=== PATIENT | female | born 1985 | race African-American/Black ===

== ENCOUNTER 2017-11-14 23:22 | Inpatient (IN) | END 2017-11-16 15:45 | disposition left against medical advice (07) | DRG 914 ==

== ENCOUNTER 2017-11-18 17:03 | Inpatient (IN) | END 2017-11-20 13:55 | disposition home or self-care (01) | DRG 902 ==

== ENCOUNTER 2018-09-17 17:26 | Emergency (ER) | payer BC ==
[~2018-09-17] VITALS: Ht 190.5 cm; Wt 145.4 kg
[~2018-09-17 17:26] MED LIST: FERR1TAB14 PO; SULF1TAB31 PO; TOPI25CA PO; TRAM50TA2 PO
[2018-09-17 17:30] VITALS: Ht 190.5 cm; Wt 145.4 kg
[2018-09-17] MEDS ORDERED: KETOROLAC 30 MG INJ IM STA (18:18)
--- NOTE | 2018-09-17 18:24 | ERD ---
ER Documentation Chief Complaint Chief Complaint possible rupture cyst suppose to have surgery soon HPI 33-year-old female presents with complaint of pelvic and suprapubic pain x2 days. Patient notes to have been diagnosed with a cyst to the pelvic region in the area of prior scar 3 years ago and has been's scheduled for surgery but keeps missing the appointments due to not being able to make time. Pt notes she is scheduled for surgery next week but d/t pain decided to present to ED today. Patient notes 2 days ago to have felt the cyst rupture, and feel a burning pain, notes 7 out of 10 pain from the area of the cyst. Patient denies fever, nausea, vomiting or diarrhea. Pt hx difficult to obtain as pt hostile throughout exam. ROS All systems reviewed and are negative except as per history of present illness. Medications Home Meds Active Scripts Gabapentin* (Gabapentin*) 300 Mg Capsule, 300 MG PO TID for neuropathy, #30 CAP Prov:DAXA GARCIA PA-C 09/17/18 Ferrous Fumarate/Ascorbic Acid (Bon-Sequels 65-25 mg Caplet) 1 Each Tablet.er, 1 TAB PO BID, #60 TAB Prov:ELÍAS RANGEL NP 11/20/17 Sulfamethoxazole/Trimethoprim* (Bactrim Ds* Tablet) 1 Each Tablet, 1 TAB PO BID for 10 Days, #20 TAB Prov:ELÍAS RANGEL NP 11/20/17 Tramadol HCl (Tramadol HCl) 50 Mg Tablet, 50 MG PO Q6H PRN for PAIN, #10 TAB Prov:ELÍAS RANGEL NP 11/20/17 Reported Medications Topiramate* (Topamax*) 25 Mg Cap.sprink, 50 MG PO DAILY, CAP 11/18/17 Allergies Allergies: Coded Allergies: Penicillins (Unverified Allergy, Unknown, 11/18/17) latex (Unverified Allergy, Unknown, 11/18/17) morphine (Unverified Allergy, Unknown, ITCH; HIVES, 11/18/17) PMhx/Soc History of Surgery: Yes Anesthesia Reaction: No Hx Neurological Disorder: No Hx Respiratory Disorders: No Hx Cardiac Disorders: Yes (HTN) Hx Psychiatric Problems: Yes (Anxiety) Hx Miscellaneous Medical Probl: No Hx Alcohol Use: No Hx Substance Use: No Hx Tobacco Use: No Physical Exam Vitals Vital Signs Date Temp Pulse Resp B/P (MAP) Pulse Ox O2 O2 Flow FiO2 Time Delivery Rate 09/17/18 75 18 154/83 100 Room Air 22:27 (106) 09/17/18 98.0 87 18 175/100 100 17:30 (125) Physical Exam GEN: Alert and coherent. Well appearing, non-toxic. No acute distress. Hostile. HEAD: Normocephalic, atraumatic. NECK: Supple. Full range of motion. Trachea midline. No lymphadenopathy. RESP: No tachypnea. Clear to auscultation bilaterally. No wheezing, rales or rhonchi. No accessory muscle use. CV: Regular rate and rhythm. No murmurs, rubs, or gallops. ABD: Soft, non-distended. No guarding. No rebound tenderness or rigidity. Positive bowel sounds in all four quadrants. Positive area of induration to the right suprapubic region, along visible scar. no warmth, no erythema, no fluctuance, TTP. BACK: Full ROM. No CVA tenderness. NEURO: Alert and oriented x3. Appropriate speech, mood and affect. Face is symmetric. Speech is normal. CN II-XII intact. Moves all extremities equally. Ambulates with a strong, steady gait. Result Diagram: 09/17/18185009/17/181850 Results 24 hrs Laboratory Tests Test 09/17/18 18:48 09/17/18 18:50 09/17/18 18:51 Urine Color YELLOW Urine Clarity SLIGHTLY CLOUDY Urine pH 6.0 Urine Specific Lueders 1.021 Urine Ketones TRACE mg/dL Urine Nitrite NEGATIVE mg/dL Urine Bilirubin NEGATIVE mg/dL Urine Urobilinogen NEGATIVE mg/dL Urine Leukocyte Esterase NEGATIVE Rafal/ul Urine Microscopic RBC 0 /HPF Urine Microscopic WBC 4 /HPF Urine Bacteria FEW /HPF Urine Hemoglobin 1+ mg/dL Urine Glucose NEGATIVE mg/dL Urine Total Protein NEGATIVE mg/dl POC Beta HCG, Qualitative NEGATIVE White Blood Count 6.7 10^3/ul Red Blood Count 5.29 10^6/ul Hemoglobin 10.0 g/dl Hematocrit 34.5 % Mean Corpuscular Volume 65.2 fl Mean Corpuscular Hemoglobin 18.9 pg Mean Corpuscular 29.0 g/dl Hemoglobin Concent Red Cell Distribution Width 19.7 % Platelet Count 311 10^3/UL Mean Platelet Volume 11.0 fl Immature Granulocytes % 0.300 % Neutrophils % 54.4 % Lymphocytes % 33.9 % Monocytes % 8.3 % Eosinophils % 2.7 % Basophils % 0.4 % Nucleated Red Blood Cells % 0.0 /100WBC Immature Granulocytes # 0.020 10^3/ul Neutrophils # 3.7 10^3/ul Lymphocytes # 2.3 10^3/ul Monocytes # 0.6 10^3/ul Eosinophils # 0.2 10^3/ul Basophils # 0.0 10^3/ul Nucleated Red Blood Cells # 0.0 10^3/ul Prothrombin Time 12.0 Sec Prothrombin Time Ratio 0.9 INR International 0.88 Normalized Ratio Activated Partial Thromboplast 25.2 Sec Time Sodium Level 141 mmol/L Potassium Level 4.2 mmol/L Chloride Level 105 mmol/L Carbon Dioxide Level 27 mmol/L Anion Gap 9 Blood Urea Nitrogen 14 mg/dl Creatinine 0.78 mg/dl Est Glomerular Filtrat > 60 mL/min Rate mL/min Glucose Level 73 mg/dl Calcium Level 8.8 mg/dl Total Bilirubin 0.1 mg/dl Direct Bilirubin 0.00 mg/dl Indirect Bilirubin 0.1 mg/dl Aspartate Amino 18 IU/L Transf (AST/SGOT) Alanine 14 IU/L Aminotransferase (ALT/SGPT) Alkaline Phosphatase 56 IU/L Total Protein 8.4 g/dl Albumin 4.3 g/dl Globulin 4.10 g/dl Albumin/Globulin Ratio 1.04 Current Medications Medications Dose Sig/Dinesh Start Time Status Last (Trade) Ordered Route PRN Stop Time Admin Dose Reason Admin Iohexol Adult GIVE PRIOR 09/17/18 Cancel ((Gastrografi Formulation TO CT ONCE 18:30 n (Ple... PO 09/17/18 18:31 therapeutic equivalent)) Ketorolac 30 mg ONCE STAT 09/17/18 DC 09/17/18 Tromethamine IM 18:18 18:59 (Toradol) 09/17/18 18:20 IV Flush 10 ml STK-MED 09/17/18 DC (NS 10 ml) ONCE .ROUTE 19:20 09/17/18 19:21 Sodium 100 ml @ ud STK-MED 09/17/18 DC Chloride ONCE .ROUTE 19:20 09/17/18 19:21 Iohexol 150 ml STK-MED 09/17/18 DC (Omnipaque ONCE .ROUTE 19:20 300mg/ ml) 09/17/18 19:21 Procedures/MDM PROCEDURE: CT Abdomen and pelvis with contrast. COMPARISON: None. FINDINGS: Evaluation of the lung bases demonstrates no pleural or parenchymal disease. Abdomen: The liver is normal in size. There is no focal mass or dilatation of the biliary tree. The gallbladder is not distended. The spleen, pancreas and bilateral adrenal glands are within normal limits. Bilateral kidneys are normal in size with symmetric enhancement. There is no focal mass, hydronephrosis or hydroureter. There is no retroperitoneal adenopathy. The abdominal aorta is of normal caliber. There is a subcutaneous density within the right lower ventral abdominal wall measuring 2.2 x 2.7 cm. There is moderate retained stool within the colon. There is no bowel obstruction or free air. A normal appendix is identified. There is no diverticulosis or diverticulitis. There is no ascites. Pelvis: The bladder is unremarkable. The uterus and adnexa are within normal limits. There is no significant pelvic adenopathy or free fluid. Evaluation of the osseous structures demonstrates no suspicious lytic or blastic lesion. IMPRESSION: No acute abnormality identified within the abdomen and pelvis. Moderate retained stool within the colon. Subcutaneous density within the right lower ventral abdominal wall could represent focal scarring. Clinical correlation and follow-up is recommended. MDM: This is a 33yo F who presents with complaint of ruptured cyst of the abdomen. On exam, no visible cyst, but area of induration felt in the right suprapubic region. CT w/IV contrast revealed no cyst or abscess, but positive scar tissue consistent with pt history. Upon re-evaluation pt in no acute distress and eating pudding and crackers in hospital bed. Pt reassured regarding results and advised to f/u with her surgeon next week as previously scheduled for surgery. Copies of CT results and labs given to pt. Pt stable for discharge with outpatient management at this time. Counseled regarding ED return pre cautions. At end of visit pt complaining of neuropathy and requesting pain medication. Pt offerred prescription of gabapentin, but upon discharge refused. Departure Diagnosis: Primary Impression: Pelvic pain Additional Impression: Scar tissue Condition: DAXA Gay PA-C September 17, 2018 18:24
[2018-09-17] MEDS ORDERED: IOHEXOL 14.3 MG(I)/ML (ADULT) BTL PO ONE (18:30)
[2018-09-17] MEDS ORDERED: SOD CHLORIDE 0.9% 100 ML ONE (19:20)
[2018-09-17] MEDS ORDERED: IOHEXOL 300MG/ML 150 ML BTL ONE (19:20)
[2018-09-17] MEDS ORDERED: GABA300C16 PO (22:24)
[2018-09-17 22:27] VITALS: BP 154/83; PULSE 75; RESP 18
== END 2018-09-17 22:27 | disposition home or self-care (01) ==
LOC: FTE 17:26
DX: L90.5 Scar conditions and fibrosis of skin (principal); I10 Essential (primary) hypertension; Z91.040 Latex allergy status
CPT/HCPCS: 36415; 74177; 80053; 81001; 81025; 85025; 85610; 85730; 96372; 99285; J1885; Q9967; Z7610

== ENCOUNTER 2018-12-14 12:39 | Emergency (ER) | payer BC ==
[~2018-12-14] VITALS: Ht 190.5 cm; Wt 136.4 kg
[~2018-12-14 12:39] MED LIST changes: +BEN25 PO; +DIVA500T15 PO; +GABA300C16 PO; +HYDR50CA2 PO; +LURA20TA PO; +PRAZ2CAP2 PO
[2018-12-14 12:43] VITALS: Ht 190.5 cm; Wt 136.4 kg
[2018-12-14] MEDS ORDERED: DIPHENHYDRAMINE 25 MG CAP PO ONE (13:00)
[2018-12-14] MEDS ORDERED: FAMOTIDINE 20 MG TAB PO ONE (13:00)
[2018-12-14] MEDS ORDERED: MINERAL OIL 240 ML LOT TOP ONE (13:00)
--- NOTE | 2018-12-14 13:13 | ERD ---
ER Documentation Chief Complaint Chief Complaint allergic rxn to high heat-environment. rash to arms and legs HPI This is a 33-year-old female with a past medical history of hypertension, a nxiety, depression, deliberate self cutting in the past who is now presenting with concerns of an allergic reaction to her skin. The patient reports dry skin and itchiness all over her body. She reports that she has many allergies, including to the sun and she is concerned that she could have an allergic reaction. The patient does not endorse any airway issues. She does not have any difficulty swallowing. She does not have a hoarse voice. She has not been drooling. She has not had any stridor or wheezing. She is not short of breath. The patient reports that her clothes might be affecting her skin as well. She is requesting paper scrubs and socks. The patient does have a history of psychiatric illness with past deliberate self cutting. The patient does not endorse any recent deliberate self cutting. She does not endorse any suicidal or homicidal ideations. She does not endorse any auditory or visual hallucinations. The patient denies feeling sick recently. The patient denies fever or chills. The patient has had no headache or vision changes. The patient does not endorse neck or back pain. The patient denies lightheadedness or dizziness. The patient has had no chest pain or trouble breathing. The patient denies nausea or vomiting. The patient denies abdominal pain. The patient denies changes to bowel movements or urination. The patient has had no focal deficits. The patient has had no weakness or numbness or tingling to the face or extremities. ROS All systems reviewed and are negative except as per history of present illness. Medications Home Meds Active Scripts Gabapentin* (Gabapentin*) 300 Mg Capsule, 300 MG PO TID for neuropathy, #30 CAP Prov:DAXA GARCIA PA-C 09/17/18 Ferrous Fumarate/Ascorbic Acid (Bon-Sequels 65-25 mg Caplet) 1 Each Tablet.er, 1 TAB PO BID, #60 TAB Prov:ELÍAS RANGEL NP 11/20/17 Sulfamethoxazole/Trimethoprim* (Bactrim Ds* Tablet) 1 Each Tablet, 1 TAB PO BID for 10 Days, #20 TAB Prov:ELÍAS RANGEL NP 11/20/17 Tramadol HCl (Tramadol HCl) 50 Mg Tablet, 50 MG PO Q6H PRN for PAIN, #10 TAB Prov:ELÍAS RANGEL BUILDING ANALYST/SUPERVISOR 11/20/17 Reported Medications Topiramate* (Topamax*) 25 Mg Cap.sprink, 50 MG PO DAILY, CAP 11/18/17 Allergies Allergies: Coded Allergies: Penicillins (Unverified Allergy, Unknown, 11/18/17) latex (Unverified Allergy, Unknown, 11/18/17) morphine (Unverified Allergy, Unknown, ITCH; HIVES, 11/18/17) PMhx/Soc History of Surgery: Yes Anesthesia Reaction: No Hx Neurological Disorder: No Hx Respiratory Disorders: No Hx Cardiac Disorders: Yes (HTN) Hx Psychiatric Problems: Yes (Anxiety) Hx Miscellaneous Medical Probl: No Hx Alcohol Use: No Hx Substance Use: No Hx Tobacco Use: No Smoking Status: Never smoker FmHx Family History: No diabetes Physical Exam Vitals Vital Signs Date Temp Pulse Resp B/P (MAP) Pulse Ox O2 O2 Flow FiO2 Time Delivery Rate 12/14/18 97.9 99 18 142/89 100 12:43 (106) Physical Exam Const: No acute distress Head: Atraumatic Eyes: Normal Conjunctiva ENT: Normal External Ears, Nose and Mouth. No submandibular swelling or angioedema. Normal oropharynx without any edema. Airway is patent. Neck: Full range of motion. No meningismus. Resp: Clear to auscultation bilaterally. No wheezing or stridor. Cardio: Regular rate and rhythm, no murmurs Abd: Morbid obesity. Soft, non tender, non distended. Normal bowel sounds Skin: No petechiae or rashes. Dry skin to the face and back. No hives. Back: No midline or flank tenderness Ext: No cyanosis, or edema. Multiple old excoriated lesions to the forearms bilaterally. Neur: Awake and alert Psych: Normal Mood and Affect Procedures/MDM MDM Previous medical records, if available, were reviewed. The patient presents for concerns of an allergic reaction. I do not see any evidence of an allergic reaction or anaphylaxis. The patient does not have any evidence of angioedema. The patient has no airway involvement. Patient does have dry skin and endorses itchiness, which again is likely from the dry skin. The patient was provided lotion in the emergency department. She was also given oral Benadryl and Pepcid. The patient will be provided a prescription for Benadryl that she can use as needed for itching. She may use lotion as needed. The patient does have a past history of psychiatric illness. The patient does not have any symptoms concerning for acute psychosis at this time. She does not endorse any suicidal or homicidal ideations. I do not feel the patient is danger to herself or others. I do not feel the patient requires any further w ork-up with respect to this. DISCHARGE Upon reevaluation of the patient, symptoms have improved. No emergent diagnoses were identified. At this time, I feel that the patient stable for discharge. The patient was instructed to follow-up with a primary care physician in 1-3 days. The patient will be given strict precautions with which to return to the emergency department. Prescriptions: Benadryl The patient's blood pressure was elevated at greater than 120/80 while in the emergency department. The patient was otherwise stable with no evidence of hypertensive urgency or emergency. The patient does not require admission for blood pressure control. I have discussed with the patient the risks of hypertension. I have instructed the patient to return to the ER for any new or worsening symptoms including chest pain, shortness of breath, headache, blurred vision, confusion, nausea, vomiting or LOC. I have advised the patient to follow up with the primary care physician for outpatient monitoring and treatment for hypertension in 1-3 days. DISCLAIMER Inadvertent spelling and grammatical errors are likely due to EHR/dictation software use and do not reflect on the overall quality of patient care. Note that the electronic time recorded on this note does not necessarily reflect the actual time of the patient encounter. Departure Diagnosis: Primary Impression: Xeroderma Additional Impression: Generalized pruritus Condition: Stable Patient Instructions: Self-Care for Skin Rashes Additional Instructions: Thank you for for coming to [facility] for your care today. Please ask your nurse or provider if you have questions about your care today and do not leave until all your questions have been answered. Please use any medications given as directed and follow-up with your doctor (or the doctor you were referred to) in the next 1-3 days. If you do not have a primary care doctor you may follow up at the [facility] or [facility] (listed below). You may also use motrin and tylenol as needed for fever and/or pain unless instructed otherwise by your provider or nurse. Indications for more urgent follow-up have been discussed, but you may return to the Emergency Department at ANY time for any worrisome or worsening symptoms. If you have abdominal pain, please know that no test or exam you received is perfect and you should follow up within 8 hours for continued pain. If you had any imaging studies today, such as an X-Ray or CT Scan, these studies will be reviewed later by a radiologist. You will be called if there are important findings that were not identified today, so make sure the contact information you provided at registration is correct. If you received any narcotic pain control medicine today, such as Vicodin, Morphine or Dilaudid, your coordination and judgment may be affected for a number of hours. Please do not drive or operate heavy machinery, and you may want someone to assist you at home. If you were given a prescription for narcotic medication, be aware that it is very addictive- use sparingly and only if necessary. PLEASE SEEK FURTHER EVALUATION AND MANAGEMENT AT YOUR DOCTORS OFFICE WITHIN THE NEXT 1-3 DAYS. IT IS YOUR RESPONSIBILITY TO MAKE AN APPOINTMENT FOR FOLOW-UP CARE. IF YOU HAVE A PRIMARY DOCTOR, PLEASE CALL THEIR OFFICE TO SCHEDULE AN APPOINTMENT FOR FOLLOW UP. IF YOU DO NOT HAVE A PRIMARY DOCTOR YOU CAN CALL OUR PHYSICIAN REFERRAL HOTLINE AT IF YOU CAN NOT AFFORD TO SEE A PHYSICIAN YOU CAN CHOSE FROM THE FOLLOWING [facility] CLINICS: [facility] [address] [facility] [address] [facility] [address] [facility] [address] [facility] [address] [facility] [id number] [facility] [facility]. [address] EDILMA SCHULER MD Dec 14, 2018 13:10
[2018-12-14 14:00] VITALS: BP 133/82; PULSE 72; RESP 16
== END 2018-12-14 14:01 | disposition home or self-care (01) ==
LOC: E/R 12:39
DX: L29.9 Pruritus, unspecified (principal); Q80.9 Congenital ichthyosis, unspecified; I10 Essential (primary) hypertension
CPT/HCPCS: 99282; Z7610